=== PATIENT | female | born 1955 | race Caucasian/White ===

== ENCOUNTER → 2017-01-16 | Outpatient (CLI) | payer OTHER, MEDICARE ==
[~2017-01-16] MED LIST: ABILIFY30 MG PO; AMITRIPTYLINE H10 M1 PO; AMLODIPINE BESYL5 MG PO; BENTYL 10 MG CA10 MG PO; CEFDINIR300 MG PO; CELEBREX 200 M200 MG PO; DEPAKOTE 250MG250 M1 PO; FUROSEMIDE 40 M40 MG PO; HYDROCODON-ACE1 EAC8 PO; K-DUR 20 MEQ T20 MEQ PO; OMEPRAZOLE40 MG PO; VANCOMYCIN100 MG/ML PO
== END ==
LOC: ULTRA 14:53
DX: M79.89 Other specified soft tissue disorders (principal); I80.8 Phlebitis and thrombophlebitis of other sites; R60.0 Localized edema